=== PATIENT | female | born 1980 | race Caucasian/White ===

== ENCOUNTER 2016-05-02 17:18 | Emergency (ER) | payer OTHER ==
[2016-05-02 17:31] VITALS: BP 101/56; PULSE 104; RESP 14; O2SAT 96
[2016-05-02] MEDS ORDERED: ACETAMINOPHEN 500 MG TAB PO ONE (17:34)
[2016-05-02 17:52] LABS: COLOR YELLOW; LEUKOCYTE ESTERASE,URINE NEGATIVE (NEGATIVE); NITRITE,URINE NEGATIVE (NEGATIVE); PH,URINE 5.5 (5.0-7.5)
[2016-05-02 18:07] LABS: RBC,URINE OCCASIONAL /hpf (0-3); WBC,URINE NONE SEEN /hpf (0-3)
--- NOTE | 2016-05-02 18:13 | UCPHY ---
H & P Patient Type: New Chief Complaint Nursing Narrative: fever,flank pain for 2 days Time Seen by Provider: 05/02/16 17:50 HPI/ROS: CHIEF COMPLAINT: ill for 2 days HISTORY OF PRESENT ILLNESS: 35-year-old female in prior good health. She has had no known exposure. She did not get seasonal influenza. We are in the midst of a influenza admission wide epidemic. For last 2 days she has had a diffuse headache along with fevers and chills and myalgias and general feeling of run down, along with a dry cough. The cough itself is seemingly persist enough that it bothers her to keep her awake at night and she has some mild to moderate discomfort to the anterior chest, precipitated by and aggravated by the cough - for last day REVIEW OF SYSTEMS: Constitutional: See above Eyes: No diplopia. ENT: No sore throat. Cardiovascular: No chest pain, no palpitations. Respiratory: No shortness of breath, or wheezing. Gastrointestinal: No nausea vomiting or diarrhea. No abdominal pain. Genitourinary: No hematuria or frequency. Musculoskeletal: No back pain. Skin: No rashes. Neurological: No headache. 10 point ROS otherwise negative Source: Patient - Personal History LMP (Females 10-55): 1-7 Days Ago Current Tetanus Diphtheria and Acellular Pertussis (TDAP): Yes Tetanus Vaccine Date: 1999 - Medical/Surgical History PMH: General Appearance: Alert, no distress. Afebrile. Normal phonation. No respiratory distress. Eyes: Pupils equal and round no pallor or injection. No icterus ENT, Mouth: Mucous membranes moist. Pharynx without erythema or exudate. TM Clear. Neck: No adenopathy. Supple. No JVD. Trachea in midline. Respiratory: There are no retractions, lungs are clear to auscultation. Cardiovascular: Regular rate and rhythm. Abdomen: Soft and nontender, no masses, bowel sounds normal. Femoral pulses equal. Neurological: Ox3. No motor weakness. Sensation intact. Gait nl. Skin: Warm and dry, no rashes. Musculoskeletal: No joint swelling. Extremities: No edema. Homans sign negative. No cords. Psychiatric: Patient is oriented X 3, there is no agitation Hx Asthma: No Hx Chronic Respiratory Disease: No Hx Diabetes: No Hx Cardiac Disease: No Hx Renal Disease: No Hx Cirrhosis: No Hx Alcoholism: No Hx HIV/AIDS: No Hx Splenectomy or Spleen Trauma: No Other PMH: kidney infection - Family History Significant Family History: No pertinent family hx - Social History Smoking Status: Never smoked Alcohol Use: None Drug Use: None - Physical Exam Exam: General Appearance: Alert, no distress. She is febrile, nontoxic. Normal phonation. No respiratory distress. Eyes: Pupils equal and round no pallor or injection. No icterus ENT, Mouth: Mucous membranes moist. Pharynx without erythema or exudate. TM Clear. Neck: No adenopathy. Supple. No JVD. Trachea in midline. Respiratory: There are no retractions, lungs are clear to auscultation. Cardiovascular: Regular rate and rhythm, grade 1/6 murmur heard best at left lower sternal border compatible with a physiologic murmur Abdomen: Soft and nontender, no masses, bowel sounds normal. Femoral pulses equal. Neurological: Ox3. No motor weakness. Sensation intact. Gait nl. Skin: Warm and dry, no rashes. Musculoskeletal: No joint swelling. Extremities: No edema. Homans sign negative. No cords. Psychiatric: Patient is oriented X 3, there is no agitation Constitutional: Initial Vital Signs Temperature (C) 38.3 C 05/02/16 17:25 Heart Rate 104 H 05/02/16 17:25 Respiratory Rate 14 05/02/16 17:25 Blood Pressure 101/56 L 05/02/16 17:25 O2 Sat (%) 96 05/02/16 17:25 O2 Delivery Mode Room Air Allergies/Adverse Reactions: sulfamethoxazole [From Bactrim] Allergy (Severe, Verified 05/02/16 17:23) Rash trimethoprim [From Bactrim] Allergy (Severe, Verified 05/02/16 17:23) Rash Home Medications: Medication Instructions Recorded Benzonatate 200 mg PO TID PRN #28 capsule 05/02/16 Hydrocodone/APAP 5/325 [[place] 1 tab PO Q4 #15 tab 05/02/16 5/325 (*)] Lexapro 05/02/16 Spironolactone 05/02/16 Medical Decision Making ED Course/Re-evaluation: Influenza testing was positive Urinalysis negative for UTI as she had flank pain We had a lengthy discussion regarding the possibility of going on Tamiflu though I would offer to I did not recommended. We had a lengthy discussion regarding cough suppression. She should avoid dextromethorphan as she is on a SSRI. However benzonatate or Vicodin would do well. I selected the latter as she is having some chest pain with cough [place] Prescription Drug Monitoring Program checked: no activity in last year - Data Points Laboratory Results: 05/02/16 05/02/16 17:47 17:45 Urine Color YELLOW Urine Appearance CLEAR Urine pH 5.5 (5.0-7.5) Ur Specific [place] <= 1.005 (1.002-1.030) Urine Protein NEGATIVE (NEGATIVE) Urine Ketones NEGATIVE (NEGATIVE) Urine Blood TRACE H (NEGATIVE) Urine Nitrate NEGATIVE (NEGATIVE) Urine Bilirubin NEGATIVE (NEGATIVE) Urine Urobilinogen 0.2 EU (0.2-1.0) Ur Leukocyte Esterase NEGATIVE (NEGATIVE) Urine RBC OCCASIONAL /hpf (0-3) Urine WBC NONE SEEN /hpf (0-3) Ur Epithelial Cells TRACE /lpf (NONE-1+) Urine Glucose NEGATIVE (NEGATIVE) Influenza Typ A,B (DFA) POSITIVE FOR FLU A H (NEGATIVE) Medications Given: Discontinued Medications Acetaminophen (Tylenol) 1,000 mg PO EDNOW ONE Stop: 05/02/16 17:35 Last Admin: 05/02/16 17:45 Dose: 1,000 mg Departure - Departure Disposition: Home, Routine, Self-Care Clinical Impression: Influenza Condition: Good Instructions: Influenza (ED) Additional Instructions: Yes, the added about rest and fluids works. Take benzonatate or the [place] for your cough. No need to take both Referrals: Rossana Hodgson [Primary Care Provider] - As per Instructions Prescriptions: Benzonatate 200 mg PO TID PRN #28 capsule PRN Reason: Cough, Moderate Hydrocodone/APAP 5/325 [[place] 5/325 (*)] 1 tab PO Q4 #15 tab - PQRS PQRS Measurement: Not applicable
[2016-05-02] MEDS ORDERED: HYDROCOD/APAP 5/325 PREPACK#6 BTL TAKEHOME ONE (18:45)
[2016-05-02 22:39] VITALS: TEMP 100.2
== END 2016-05-02 18:55 | disposition home or self-care (01) ==
LOC: CED 17:18
DX: J10.1 Influenza due to other identified influenza virus with other respiratory manifestations (principal)
CPT/HCPCS: 81003-PO; 81015-PO; 87400-PO; 99204-PO; G0463-PO

== ENCOUNTER → 2016-09-18 | Outpatient (CLI) | payer OTHER | LOC: CIMAGING 12:31 | PROVIDERS: ATTEND Physician Assistant Medical | DX: R13.10 Dysphagia, unspecified (principal); E07.9 Disorder of thyroid, unspecified | CPT/HCPCS: 76536-PO ==